=== PATIENT | male | born 1970 | race Caucasian/White ===

== ENCOUNTER 2024-07-09 13:54 | Emergency (ER) | payer MEDICAID, SELFPAY ==
--- NOTE | ~2024-07-09 | XR_ITS ---
EXAMINATION: XR HAND/WRIST, RIGHT CLINICAL INFORMATION: Trauma. Pain. COMPARISON: None available. TECHNIQUE: PA, lateral, oblique, and scaphoid views of the right hand and wrist. FINDINGS: The bones and soft tissues are normal. No fracture. Alignment is anatomic. Joint spaces are maintained. No erosions or soft tissue calcifications. XR/XR hand wrist RT IMPRESSION: Normal radiographs of the hand and wrist. Electronically signed by: Prasad Escalante MD 07/09/2024 05:57 PM EDT
[2024-07-09 15:46] VITALS: BP 114/72; PULSE 60; RESP 16; TEMP 36.7; O2SAT 97; BMI 23.0
--- NOTE | 2024-07-09 15:55 | ED_ITS ---
HPI - Extremity Problem General Chief complaint: Extremity Injury, Upper Stated complaint: work inj- r hand Time Seen by Provider: 07/09/24 16:03 Source: patient, RN notes reviewed and old records reviewed Mode of arrival: ambulatory History of Present Illness ED Provider: Rachelle Child PA-C HPI Narrative: 54-year-old male with no significant past medical history presenting to the ED complaining of crush injury to right hand s/p hand being crushed between tractor-trailer motor & dumpster yesterday while at work. Reports increasing pain and swelling to right hand with limited ROM secondary to pain. Reports in termittent tingling. Denies injury to other area Related Data Previous Rx's ?Medication ?Instructions ?Recorded hydrocodone 5 mg-acetaminophen 325 1 tab PO Q8H PRN pain, severe 3 07/09/24 mg tablet days #9 tabs Allergies Allergy/AdvReac Type Severity Reaction Status Date / Time No Known Allergies Allergy Verified 07/09/24 15:51 Review of Systems Review of Systems: Yes all other systems are reviewed and are negative Constitutional: Constitutional: Reports as per HPI [facility] Past Medical History Attestation statement: The following information was validated with the patient. Source: old records reviewed Social History Social History Advance Directives: No Advance Directives Information Provided: No Physical Exam Vital Signs: Vital Signs: Last Vital Signs Temp 98.1 F 07/09/24 19:05 Pulse 56 07/09/24 19:05 Resp 16 07/09/24 19:05 BP 100/59 L 07/09/24 19:05 Pulse Ox 98 07/09/24 19:05 O2 Del Method Room Air 07/09/24 19:05 BMI result Body Mass Index 23.0 Const: General: cooperative, healthy appearing and no acute distress Orientation/consciousness: patient oriented x3 Limitations: no limitations HEENT: Head: Yes normal to inspection and Yes atraumatic Ears: hearing grossly normal bilaterally General nose exam: Normal external nose present Face and sinus: Yes normal facial exam Eyes: General: appearance normal, both eyes and all related structures EOM: EOMs intact bilaterally Neck: Neck: Yes normal visual inspection and Yes no meningeal signs Resp: Effort & Inspection: normal respiratory effort and no respiratory distress Cardio: Rate: regular rate Skin: Rashes: no rashes Wounds: no wounds Neuro: General: patient oriented x3, tone normal and no meningeal signs Cranial nerves: Yes CN's II-XII intact bilaterally Gait exam (Neuro): Normal gait present Extrem: Other: Noted swelling to right hand greatest to 4th and 5th metacarpals with diffuse tenderness. Limited ROM secondary to pain. Neurovascularly intact. No wrist or snuffbox tenderness. Course Course Course Narrative: RME: done by ALDEN Hurt. 54-year-old male presents to ED for right hand injury that occurred at work yesterday. Patient states right hand was crushed between a tractor-trailer motor and thumbs the wall. Patient came to the ED to be evaluated due to worsening pain and slight swelling. Positive for right 5th 4th metacarpal tenderness and slight swelling on palpation. Negative ecchymosis. X-ray ordered. XR hand wrist RT IMPRESSION: Normal radiographs of the hand and wrist. ADDENDUM #1 There is a nondisplaced transverse fracture of the distal shaft of the fifth metacarpal. > Ulnar gutter splint applied with sling. Is to follow-up with hand specialist/orthopedics. Results discussed with patient including worrisome signs and symptoms and strict return precautions, and when to return to the emergency department. They verbalized understanding and feel safe for discharge at this time. Medications Administered Discontinued Medications Generic Name Dose Route Start Last Admin Trade Name Freq PRN Reason Stop Dose Admin Oxycodone HCl 5 mg 07/09/24 16:39 07/09/24 16:46 Oxycodone Hcl Immed Release 5 Mg Tablet PO 07/09/24 16:40 5 mg ONCE ONE Administration Medical Decision Making Medical Decision Making MDM Narrative: 54-year-old male with no significant past medical history presenting to the ED complaining of crush injury to right hand s/p hand being crushed between tractor-trailer motor & dumpster yesterday while at work. On exam vital signs stable, NAD, nontoxic appearing, physical exam as noted above. Concern for fracture/crush injury. No open wounds. No snuffbox tenderness Plan: X-ray, pain control Please refer to course for remaining clinical decision making, interpretation of labs/imaging results, and discussions with consultants and/or family members. Differential Diagnosis Differential Diagnoses: The differential diagnosis associated with the presentation includes As above Independent Interpretation I performed an independent interpretation of an: Plain X-Ray (Fifth metacarpal fracture appreciated on my interpretation) Radiology Impression Discussion of test interpretation with radiology: I have reviewed the radiologist's reading. External Record Review External record reviewed: Inpatient record, Office record, Outpatient record, Prior outpatient labs, Prior outpatient radiology, Primary care record and Outside ED record Tests considered The following testing was considered but not selected: As above Prescription Management I considered prescription management with: Pain Medication Social Determinants Patient?s care significantly limited by Social Determinants of Health including: Low income, Problems related to primary support group, Problems related to employment and Other Social Determinant of Health Procedures Orthopedic Splinting/Casting Injury #1: Side: right Upper Extremity Injury Location: finger Upper Extremity Immobilizer: ulnar gutter Discharge Plan Discharge Clinical Impression: Closed fracture of fifth metacarpal bone Patient Disposition: Home, Self-Care Instructions: Hand Fracture (ED) Additional Instructions: You have a fracture of your 5th metacarpal. It is nondisplaced KEEP SPLINT ON, DRY, CLEAN YOU NEED TO FOLLOW-UP WITH ORTHOPEDIC HAND SPECIALIST. CALL TOMORROW TO MAKE AN APPOINTMENT Wear sling as needed for elevation and comfort. Ice and elevate. Sinking Spring as an opiate pain medication, take only when pain is severe for the next 3 days. You should also Take ibuprofen and Tylenol for pain/swelling Do not drive or operate machinery while taking opiate pain medications. IF FINGERS BECOME NUMB, INCREASINGLY SWOLLEN, RED, DISCOLORED, PAIN IS UNBEARABLE REMOVE SPLINT AND RETURN TO THE ED IMMEDIATELY Patient was given opiate pain medication in the emergency department. Please do not drive the rest of the day. Prescriptions: New hydrocodone-acetaminophen 5-325 mg tablet 1 tab PO Q8H PRN (Reason: pain, severe) 3 Days Qty: 9 0RF Rx Instructions: Partial Fill upon patient request. Referrals: [facility] [Outside] Chari Parks MD [Physician] - 1 week Stand Alone Forms: Work/School Release Interventions: ED Discharge Assessment Last Done: 07/09/24 19:05 Discharge Date/Time: 07/09/24 19:06 Print Language: Arabic
[2024-07-09] MEDS: oxyCODONE HCl Immed Release 5 MG TABLET PO (16:46)
[2024-07-09 18:59] VITALS: BP 100/59; PULSE 56; RESP 16; TEMP 36.7; O2SAT 98
[2024-07-09 19:05] VITALS: BP 100/59; PULSE 56; RESP 16; TEMP 36.7; O2SAT 98
== END 2024-07-09 19:06 | disposition home or self-care (01) ==
PROVIDERS: Emergency Provider Emergency Medicine Emergency Medical Services
DX: S62.326A Displaced fracture of shaft of fifth metacarpal bone, right hand, initial encounter for closed fracture (principal); W23.0XXA Caught, crushed, jammed, or pinched between moving objects, initial encounter; Y93.89 Activity, other specified; Y92.89 Other specified places as the place of occurrence of the external cause; Y99.0 Civilian activity done for income or pay
CPT/HCPCS: 73110; 73130; 99283

== ENCOUNTER 2024-07-15 09:09 | Outpatient (REF) | payer MEDICAID, SELFPAY | END 2024-07-15 09:10 | disposition home or self-care (01) | LOC: HO.HOSX 09:09 | DX: M79.641 Pain in right hand (principal); S62.336A Displaced fracture of neck of fifth metacarpal bone, right hand, initial encounter for closed fracture | CPT/HCPCS: 26600; 73130; 99202 ==

== ENCOUNTER 2024-07-15 09:31 | Outpatient (AMB) | payer OTHER, MEDICAID, SELFPAY ==
--- NOTE | 2024-07-15 09:44 | MHC.OFFVIS ---
Vital Signs 07/15/24 09:45 Height 5 ft 11 in Weight 165 lb BMI 23.0 Intake Visit Reasons: FC- RT Closed fracture of fifth metacarpal bone Intake Note: Cain is a 54 year old right hand dominant male who presents today as a new patient for a fracture care visit. 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 He went to go and push the motor away when his hand was crushed between the motor and a dumpster. He was seen at the [facility] ED the day after the injury, where he was placed in an ulnar gutter splint. Patient reports that he is still having some mild pain and discomfort. He has somel numbness at the time of the splint application but has since improved. Allergies No Known Allergies Allergy (Verified 07/15/24 09:50) HPI HPI FC- RT Closed fracture of fifth metacarpal bone: Details: Patient is a 54-year-old male who presents for evaluation of right 5th metacarpal neck fracture, date of injury 07/08/2024. The patient reports that on that date, he was unloading a truck, and his hand got caught between a motor he was attempting to lift and a dumpster. The patient reports that he immediately began to experience significant discomfort in his right hand, and was evaluated in the emergency department the next day, where x-rays were taken revealing a nondisplaced fracture of the 5th metacarpal neck of the right hand. The patient states that he was placed in a splint, but he did remove the splint yesterday, as he found it tremendously uncomfortable. Today, the patient reports that he is still experiencing significant discomfort in the right hand, although it has improved since date of injury. The patient's largest concern is the significant ecchymosis and swelling both still present on both the dorsal and volar aspects of the right hand. Patient denies any numbness or tingling in the right hand. No other acute complaints or concerns at this time. 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 Neuro: Normal sensation of the tips of all digits of the [] hand at this time Vascular: Cap refill brisk Pain: Patient reports significant tenderness to gentle palpation about the 5th metacarpal neck and distal shaft shaft of the right hand Patient also reports some discomfort in this area when attempting to make a closed fist Minimal tenderness to palpation of the 4th metacarpal No tenderness to palpation of the 3rd, 2nd, 1st metacarpals of the right hand No snuffbox tenderness ROM: Patient is able to make a closed fist with the 1st through 4th digits of the right hand and extend them fully without much difficulty Skin: No lacerations or abrasions. General: There is noted to be significant edema over the 5th metacarpal of the right hand There is also noted to be palmar ecchymosis of the right hand No erythema, or evidence of infection. Psych: Appears grossly normal Affect normal Attitude cooperative Office Procedures AMB Fracture Care Details: Right 5th metacarpal neck fracture Fracture Billing Code: Fracture Billing Code Casting/Splints 96712-Yxrhmxj Splint Application Procedure code (CPT) selection complete Results Reviewed Results Reviewed: X-rays obtained in the office today and independently reviewed by me, Jeremy Kessler PA-C, demonstrate nondisplaced fracture of the 5th metacarpal neck of the right hand, unchanged from x-rays obtained in the emergency department. Assessment & Plan Assessment & Plan (1) Fracture of neck of fifth metacarpal bone of right hand: Code(s): S62.336A - Displaced fracture of neck of fifth metacarpal bone, right hand, initial encounter for closed fracture Category: Medical Plan 1. Right 5th metacarpal neck fracture Date of injury 07/08/2024 Patient is educated about this injury and the treatment options available At this time, patient is informed that he will not require surgery for treatment, as his fracture is nondisplaced and interdigitated well Patient understands this is amenable to this plan However, patient was informed that due to the significant swelling he continues to experience in his right hand, I can not place him into a cast at this time, and he will instead need to be placed into a splint for another week Patient will follow-up next week with repeat x-rays for reassessment and anticipation of placement into a cast, sooner with any acute concerns Orders: Orders XR hand RT min 3V Today M79.641 - Pain in right hand Coding Level of Care Code New Pt Level 3 (02505) Diagnoses Fracture of neck of fifth metacarpal bone of right hand S62.336A CPT Codes Fracture Care - Fracture Billing Code: Fracture Billing Code ([id number]) Splint - CPT: 31347-Ajgbnwe Splint Application ([id number])
[2024-07-15 09:45] VITALS: BMI 23.0
== END 2024-07-15 10:46 | disposition home or self-care (01) ==
LOC: HO.HOS 09:31
DX: S62.366A Nondisplaced fracture of neck of fifth metacarpal bone, right hand, initial encounter for closed fracture (principal); Z04.2 Encounter for examination and observation following work accident
CPT/HCPCS: 26600; 99203

== ENCOUNTER 2024-07-21 09:27 | Outpatient (AMB) | payer OTHER, SELFPAY ==
--- NOTE | 2024-07-21 09:41 | A.OFFVIS_ITS ---
Vital Signs 07/21/24 09:44 Height 5 ft 11 in Weight 165 lb BMI 23.0 Handedness Right Intake Visit Reasons: OV- RT Closed fracture of fifth metacarpal bone Intake Note: Cain is a 54 year old right hand dominant male who presents today for a follow up visit for his right hand fracture of neck of fifth metacarpal bone s/p crush injury DOI: 07/08/2024. Patient reports his right hand feels okay, his concern is his wrist. He reports pain and stiffness at his wrist. He takes ibuprofen as needed for pain but says this gives him mild relief. He also ices and says this relief some pain inside the right hand. Allergies No Known Allergies Allergy (Verified 07/21/24 09:44) HPI HPI OV- RT Closed fracture of fifth metacarpal bone: Details: Patient is a 54-year-old male who presents for one-week follow-up of closed fracture of right 5th metacarpal neck, date of injury 07/08/2024 today, the patient reports that the swelling in his hand has gone down significantly since evaluation last week, and feels that this led to the splint loosening. Patient states that he did keep the splint clean dry and intact. Patient does report he is still experiencing some mild discomfort in the area fracture, but this is also improved since previous evaluation. Patient denies any numbness or tingling in the right hand. No other acute complaints or concerns at this time. 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 Neuro: Normal sensation of the tips of all digits of the right hand at this time Vascular: Cap refill brisk Pain: Patient reports mild tenderness to gentle palpation about the 5th metacarpal neck and distal shaft shaft of the right hand Minimal tenderness to palpation of the 4th metacarpal No tenderness to palpation of the 3rd, 2nd, 1st metacarpals of the right hand No snuffbox tenderness ROM: Patient is able to make a closed fist with the 1st through 4th digits of the right hand and extend them fully without much difficulty Skin: No lacerations or abrasions. General: There is noted to be significantly improved edema over the 5th metacarpal of the right hand Palmar ecchymosis has resolved No erythema, or evidence of infection. Psych: Appears grossly normal Affect normal Attitude cooperative Office Procedures Casting/Splints Details: Ulnar gutter cast applied 98214-Shnj/Wrist Cast Application Procedure code (CPT) selection complete Results Reviewed Results Reviewed: X-rays obtained in the office today and independently reviewed by me, Jeremy Kessler PA-C, demonstrate nondisplaced fracture of the 5th metacarpal neck of the right hand. Assessment & Plan Assessment & Plan (1) Fracture of neck of fifth metacarpal bone of right hand: Code(s): S62.336A - Displaced fracture of neck of fifth metacarpal bone, right hand, initial encounter for closed fracture Category: Medical Plan 1. Right 5th metacarpal neck fracture Date of injury 07/08/2024 Patient is educated about this injury and the treatment options available At this time, patient is informed that he will not require surgery for treatmen t, as his fracture is nondisplaced and interdigitated well Patient understands this is amenable to this plan Patient was placed into a short-arm ulnar gutter cast at this time Patient is educated on proper cast care and precautions Patient is also educated that due to his cigarette smoking, there is a chance he will experience delay healing with this fracture Patient states understanding of this Patient will follow-up in 2-3 weeks with repeat x-rays and cast off for reassessment, sooner with any acute concerns Orders: Orders XR hand RT min 3V Today M79.641 - Pain in right hand Coding Level of Care Code Global (93289) Diagnoses Fracture of neck of fifth metacarpal bone of right hand S62.336A CPT Codes Casting - CPT: 83550-Hmol/Wrist Cast Application ([id number])
[2024-07-21 09:44] VITALS: BMI 23.0
== END 2024-07-21 10:42 | disposition home or self-care (01) ==
DX: S62.336A Displaced fracture of neck of fifth metacarpal bone, right hand, initial encounter for closed fracture (principal); Z04.2 Encounter for examination and observation following work accident
CPT/HCPCS: 29085; 99024

== ENCOUNTER 2024-07-21 10:33 | Outpatient (REF) | payer OTHER, SELFPAY | END 2024-07-21 10:34 | disposition home or self-care (01) | LOC: HO.HOSX 10:33 | DX: M79.641 Pain in right hand (principal); S62.336A Displaced fracture of neck of fifth metacarpal bone, right hand, initial encounter for closed fracture | CPT/HCPCS: 29085; 73130; 99212 ==

== ENCOUNTER 2024-07-28 12:47 | Outpatient (AMB) | payer OTHER, SELFPAY ==
--- NOTE | 2024-07-28 12:49 | MHC.OFFVIS ---
Intake Visit Reasons: OV- cast change, RT Closed fC of 5th metacarpal Intake Note: Cain is a 54 year old male who presents today for a cast change. He mentions that his cast feels very loose. Cast was removed. Allergies No Known Allergies Allergy (Verified 07/28/24 12:58) HPI HPI OV- cast change, RT Closed fC of 5th metacarpal: Details: 54-year-old right hand dominant male who presents in the office today for a follow-up of right closed fracture of the 5th metacarpal status post crush injury which occurred on 07/08/24. The patient was seen by Jeremy Kessler PA-C on 07/21/24 when he was educated about his injury and treatment options and was placed into a short-arm ulnar gutter cast at that time. He was also educated on proper cast care and precautions. While in the office today, the patient presents today for a cast change. He reports that he feels his cast is very loose. 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 No ecchymosis. Mild edema over the 5th and 4th metacarpal. Able to flex and extent all the digits with pain. Sensation is intact. Capillary refill is brisk. Office Procedures Casting/Splints 81977-Cwsu/Wrist Cast Application Procedure code (CPT) selection complete Assessment & Plan Assessment & Plan (1) Fracture of neck of fifth metacarpal bone of right hand: Code(s): S62.336A - Displaced fracture of neck of fifth metacarpal bone, right hand, initial encounter for closed fracture Category: Medical Plan Mr. Brantley is a 54-year-old right hand dominant male who presents in the office today for a follow-up of right closed fracture of the 5th metacarpal status post crush injury which occurred on 07/08/24. The patient was seen by Jeremy Kessler PA-C, on 07/21/24 when he was educated about his injury and treatment options and was placed into a short-arm ulnar gutter cast at that time. He was also educated on proper cast care and precautions. While in the office today, the patient presents today for a cast change. He reports that he feels his cast is very loose. He was placed back into an ulnar gutter cast. Follow up at his normally scheduled follow up, or sooner if needed. Patient Instructions: Scribed by Marie Gotti, medical assistant supervisor, for Jessi Morel PA-C on 07/28/2024 at 01:04 pm EST. Coding Level of Care Code Global (88615) Diagnoses Fracture of neck of fifth metacarpal bone of right hand S62.336A CPT Codes Casting - CPT: 50595-Qhlk/Wrist Cast Application ([id number])
== END 2024-07-28 13:51 | disposition home or self-care (01) ==
LOC: HO.HOS 12:47
PROVIDERS: Visit Provider Physician Assistant
DX: S62.336A Displaced fracture of neck of fifth metacarpal bone, right hand, initial encounter for closed fracture (principal); S67.21XA Crushing injury of right hand, initial encounter; Z04.2 Encounter for examination and observation following work accident
CPT/HCPCS: 29075; 99024

== ENCOUNTER → 2024-07-28 12:47 | Outpatient (BNVA) | payer OTHER, SELFPAY | PROVIDERS: Visit Provider Physician Assistant | DX: S62.326A Displaced fracture of shaft of fifth metacarpal bone, right hand, initial encounter for closed fracture (principal); W23.0XXA Caught, crushed, jammed, or pinched between moving objects, initial encounter; Y93.89 Activity, other specified; Y92.69 Other specified industrial and construction area as the place of occurrence of the external cause; Y99.0 Civilian activity done for income or pay; Z04.2 Encounter for examination and observation following work accident | CPT/HCPCS: 29075; 99212 ==

== ENCOUNTER 2024-08-12 08:18 | Outpatient (REF) | payer OTHER, SELFPAY | END 2024-08-12 08:19 | disposition home or self-care (01) | LOC: HO.HOSX 08:18 | DX: M79.641 Pain in right hand (principal); S62.336A Displaced fracture of neck of fifth metacarpal bone, right hand, initial encounter for closed fracture | CPT/HCPCS: 73130; 99212 ==

== ENCOUNTER 2024-08-12 09:44 | Outpatient (AMB) | payer OTHER, SELFPAY ==
--- NOTE | 2024-08-12 09:52 | MHC.OFFVIS ---
Vital Signs 08/12/24 10:05 Height 5 ft 11 in Weight 165 lb BMI 23.0 Handedness Right Intake Visit Reasons: OV: RT FX of 5th metacarpal DOI: 07/08/24-w/xray Intake Note: Cain is a 54 year old right hand dominant male who presents today for a follow up visit for his right hand fracture of neck of fifth metacarpal bone s/p crush injury DOI: 07/08/2024. Short-arm ulnar gutter cast removed and xrays updated. Patient reports his right hand feels stiff and has pain. He expresses the pain is in the 3rd metacarpal area (dorsal aspect) of the right hand. 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 Today, the patient reports that the pain he was experiencing at the fracture site has completely resolved, but he is experiencing significant discomfort and associated stiffness in the R hand, worst in the middle finger. Denies any numbness or tingling in the right hand. No other acute complaints or concerns at this time. 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 Neuro: Normal sensation of the tips of all digits of the right hand at this time Vascular: Cap refill brisk Pain: Patient reports no tenderness to gentle palpation about the 5th metacarpal neck and distal shaft shaft of the right hand No tenderness to palpation of the 4th metacarpal No tenderness to palpation of the 3rd, 2nd, 1st metacarpals of the right hand No snuffbox tenderness ROM: Patient was unable to make a closed fist at this time due to stiffness and discomfort Patient is able to extend all digits right hand fully and without difficulty Skin: No lacerations or abrasions. General: There is noted to be significantly improved edema over the 5th metacarpal of the right hand Palmar ecchymosis has resolved No erythema, or evidence of infection. Psych: Appears grossly normal Affect normal Attitude cooperative Results Reviewed Results Reviewed: X-rays obtained in the office today and independently reviewed by me, Jeremy Kessler PA-C, demonstrate minimally displaced fracture of the 5th metacarpal neck with evidence of interval bone healing. Assessment & Plan Assessment & Plan (1) Fracture of neck of fifth metacarpal bone of right hand: Code(s): S62.336A - Displaced fracture of neck of fifth metacarpal bone, right hand, initial encounter for closed fracture Category: Medical Plan 1. Right 5th metacarpal neck fracture Date of injury 07/08/2024 Patient is educated about this injury and the treatment options available At this time, patient is informed that he will not require surgery for treatment, as his fracture is nondisplaced and interdigitated well Patient understands this is amenable to this plan At this time, patient is informed that he no longer needs to be in a cast, and then he will be provided with a Velcro wrist splint to be worn with daytime activities and should jaylin tape his fingers together at all times, aside from bathing Patient is also educated that he should be adherent to a strict 5 lb weight restriction in his right hand while at work for the next 2 weeks, increasing to 10 lb at that point until follow-up Patient states understanding of this Patient will follow-up in 4 weeks with repeat x-rays for reassessment, sooner with any acute concerns Orders: Orders XR hand RT min 3V Today M79.641 - Pain in right hand OT Evaluation and Treatment Today S62.336A - Displaced fracture of neck of fifth metacarpal bone, right hand, initial encounter for closed fracture Coding Level of Care Code Global (27035) Diagnoses Fracture of neck of fifth metacarpal bone of right hand S62.336A
[2024-08-12 10:05] VITALS: BMI 23.0
== END 2024-08-12 10:41 | disposition home or self-care (01) ==
DX: S62.336A Displaced fracture of neck of fifth metacarpal bone, right hand, initial encounter for closed fracture (principal)
CPT/HCPCS: 99024

== ENCOUNTER 2024-08-27 11:03 | Outpatient (AMB) | payer OTHER, SELFPAY ==
--- NOTE | 2024-08-27 11:13 | A.OFFVIS_ITS ---
Vital Signs 08/27/24 11:28 Height 5 ft 11 in Weight 165 lb BMI 23.0 Handedness Right Intake Visit Reasons: OV: RT FX of 5th metacarpal DOI: 07/08/24-w/xray Intake Note: Cain is a 54 year old right hand dominant male who presents today for a follow up visit for his right hand fracture of neck of fifth metacarpal bone s/p crush injury DOI: 07/08/2024. Patient has concern of nerve damage in right hand and wrist from his cast. Reports pulling up his pants or pulling up socks he feels sharp shooting pain at the base of right thumb. Reports he feels sharp pain on the dorsal and volar aspect of the right wrist that radiates half way into his forearm. He states he started OT and has only done 2 visits so far. Allergies No Known Allergies Allergy (Verified 08/27/24 11:27) HPI HPI OV: RT FX of 5th metacarpal DOI: 07/08/24-w/xray: Details: Patient is a 54-year-old male who presents for follow-up evaluation of right 5th metacarpal fracture, date of injury 07/08/2024. Today, the patient reports that the fracture site is feeling very well, he experiences no pain or discomfort at baseline in this area. The patient does report however that he is experiencing significant pain in his wrist, in the dorsal aspect of his 3rd metacarpal, and at the base of his thumb radiating into his forearm, ongoing since removal from his cast. Patient states concern that the cast cause some injury to the nerves of hand that has caused this pain. Patient denies any numbness or tingling in the right hand. No other acute complaints or concerns at this time. 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 Neuro: Normal sensation of the tips of all digits of the right hand at this time Vascular: Cap refill brisk Pain: Patient reports no tenderness to gentle palpation about the 5th metacarpal neck and distal shaft shaft of the right hand No tenderness to palpation of the 4th metacarpal No tenderness to palpation of the 3rd, 2nd, 1st metacarpals of the right hand No snuffbox tenderness ROM: Patient was able to make a closed fist Patient is able to extend all digits right hand fully and without difficulty Skin: No lacerations or abrasions. General: There is noted to be significantly improved edema over the 5th metacarpal of the right hand Palmar ecchymosis has resolved No erythema, or evidence of infection. Psych: Appears grossly normal Affect normal Attitude cooperative Results Reviewed Results Reviewed: X-rays obtained in the office today and independently reviewed by me, Jeremy Kessler PA-C, demonstrate minimally displaced fracture of the 5th metacarpal neck with evidence of interval bone healing. Assessment & Plan Assessment & Plan (1) Fracture of neck of fifth metacarpal bone of right hand: Code(s): S62.336A - Displaced fracture of neck of fifth metacarpal bone, right hand, initial encounter for closed fracture Category: Medical Plan 1. Right 5th metacarpal neck fracture Date of injury 07/08/2024 Patient is educated about this injury and the treatment options available At this time, patient is informed that he no longer needs to wear the Velcro wrist splint, and he should only be jaylin taping his fingers with daytime activities Patient is also educated that he should be adherent to a strict 10-15 lb weight restriction for the next 2-3 weeks, and gradually working back up to normal lifting at that point Patient states understanding of this 2. De Quervain tenosynovitis, right Patient is educated about this condition Patient is educated about the treatment options available Patient would like to proceed with continuation of occupational therapy at this time, and states he would not like a steroid injection today Patient is educated that if in 4-6 weeks after this visit he is still ex periencing pain, he can call our office if he would like for reassessment and discussion injection Orders: Orders XR hand RT min 3V Today M79.641 - Pain in right hand Coding Level of Care Code Est Pt Level 3 (71818) Diagnoses Fracture of neck of fifth metacarpal bone of right hand T79.542N
[2024-08-27 11:28] VITALS: BMI 23.0
== END 2024-08-27 11:51 | disposition home or self-care (01) ==
DX: S62.336A Displaced fracture of neck of fifth metacarpal bone, right hand, initial encounter for closed fracture (principal)
CPT/HCPCS: 99024

== ENCOUNTER 2024-08-27 11:03 | Outpatient (REF) | payer OTHER, SELFPAY | END 2024-08-27 11:04 | disposition home or self-care (01) | LOC: HO.HOSX 11:03 | DX: M79.641 Pain in right hand (principal); S62.336A Displaced fracture of neck of fifth metacarpal bone, right hand, initial encounter for closed fracture | CPT/HCPCS: 73130; 99212 ==

== ENCOUNTER 2024-09-05 08:47 | Outpatient (RCR) | payer OTHER, SELFPAY ==
--- NOTE | 2024-08-21 15:29 | MHC.OT.EP ---
[address] [phone] Occupational Therapy Plan of Care Patient Name: Cain Brantley Date of Evaluation: 08/21/24 Diagnosis: hand stiffness ; 5th MC neck fracture R hand Pain Location: Pt reported pain over dorsal side of D3 espec. at MP level. Pt reports intermittent stabbing pain from volar wrist to elbow w/ certain movements but was unable to quantify Pain Score: 7 Pain Scale Used: Numeric (0 - 10) Aggravating Factors: HYPERSENSITIVE ; MOVEMENT OR TOUCH Alleviating Factors: None Assessment: Pt is a R hand dominant male who injured his R hand while at work in a crush injury. Pt went to the ED the next day when swelling and pain increased. He was diagnosed w/ a 5th digit metacarpal neck fracture and was placed in a temporary splint until he was able to follow up w/ ortho. Pt had a follow up w/ ortho and was placed in a cast. He presents today in a pre-fabricated orthoses and SF/RF jaylin taping as prescribed by Jeremy RUANO. He reports hypersensitivity w/ ROM and/or touch of his hand volar and dorsal sides. He has significant edema and has been reportedly guarding his hand. He has been referred to skilled OT therapy to decrease edema/ pain and increase AROM, strength and functional use of his dominant hand. 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 Thank you once again for your referral.
== END 2024-09-11 09:09 | disposition home or self-care (01) ==
LOC: HO.OT 08:47
DX: S62.336A Displaced fracture of neck of fifth metacarpal bone, right hand, initial encounter for closed fracture (principal)
CPT/HCPCS: 97110; 97140; 97166; 97535

== ENCOUNTER 2025-07-28 06:31 | Emergency (ER) | payer OTHER, SELFPAY ==
--- NOTE | ~2025-07-28 | XR_ITS ---
CLINICAL HISTORY: painful 3 view right shoulder Comparison: None provided Findings: Bones intact. No dislocations. No significant loss of joint space or osteophytes. No erosions. No radiopaque foreign body. IMPRESSION: 1. No acute findings This document has been electronically signed by: Jeremy Barnard MD on 07/28/2025 07:18:41
[2025-07-28 06:34] VITALS: BP 123/72; PULSE 73; RESP 20; TEMP 36.7; O2SAT 98; BMI 23.1
--- NOTE | 2025-07-28 06:59 | ED_ITS ---
HPI - Extremity Problem General Chief complaint: Extremity Injury, Upper Stated complaint: right shoulder and arm pain Time Seen by Provider: 07/28/25 06:58 Source: patient Mode of arrival: ambulatory Limitations: no limitations History of Present Illness ED Provider: Sandra Santacruz PA-C HPI Narrative: Patient is a 55 year old assigned male at with no reported medical history presenting to the emergency department today with right shoulder pain. Patient states that over the last week has had intermittent right shoulder pain. 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 Patient states that he has more pain with certain right shoulder ranges of motion and allowing warm / hot shower water flowing over the area helps. Patient denies any other complaints at this time. Related Data Home Medications ?Medication ?Instructions ?Recorded ?Confirmed ibuprofen 200 mg tablet 400 mg PO Q8H PRN 07/21/24 Previous Rx's ?Medication ?Instructions ?Recorded cyclobenzaprine 5 mg tablet 5 mg PO TID PRN muscle spa sm 7 07/28/25 days #21 tabs naproxen 500 mg tablet 500 mg PO BID 7 days #14 tab s 07/28/25 Allergies Allergy/AdvReac Type Severity Reaction Status Date / Time No Known Allergies Allergy Verified 07/28/25 06:36 Review of Systems Constitutional: Constitutional: Reports as per HPI Eyes: Eyes: Reports as per HPI ENT: Reports as per HPI Cardiovascular: Cardiovascular: Reports as per HPI Respiratory: Respiratory: Reports as per HPI Gastrointestinal: Gastrointestinal: Reports as per HPI Genitourinary: Genitourinary: Reports as per HPI Musculoskeletal: Musculoskeletal: Reports as per HPI Integumentary/Breasts: Skin/Breast: Reports as per HPI Neurologic: Reports as per HPI Psychiatric: Psychiatric: Reports as per HPI Endocrine: Endocrine: Reports as per HPI Hematologic/Lymphatic: Hematologic/Lymphatic: Reports as per HPI Allergic/Immunologic: Allergic/Immunologic: Reports as per HPI PMFSH Past Medical History Attestation statement: The following information was validated with the patient. 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 Exam Vital Signs: Vital Signs: Last Vital Signs Temp 98.0 F 07/28/25 06:34 Pulse 73 07/28/25 06:34 Resp 20 07/28/25 06:34 BP 123/72 07/28/25 06:34 Pulse Ox 98 07/28/25 06:34 O2 Del Method Room Air 07/28/25 06:34 BMI result Body Mass Index 23.1 Const: General: cooperative, no acute distress, alert and awake Nutritional Appearance: well nourished Orientation/consciousness: patient oriented x3 HEENT: Head: Yes normal to inspection and Yes atraumatic Ears: hearing grossly normal bilaterally and external ears normal General nose exam: Normal external nose present, no nasal discharge noted and no epistaxis Face and sinus: Yes normal facial exam, No abrasion and No laceration Mouth: Normal oral and palatal mucosa present, no drooling and no muffled voice Eyes: General: appearance normal, both eyes and all related structures Periorbital: periorbital findings normal Eyelids: Yes eyelids normal C onjunctivae: conjunctivae normal Pupils: Equal, round and reactive pupils present EOM: EOMs intact bilaterally Neck: Neck: Yes normal visual inspection and Yes full ROM Resp: Effort & Inspection: normal respiratory effort and able to speak in complete sentences Neuro: General: patient oriented x3, moves all extremities and CN's II-XI intact bilaterally Cranial nerves: Yes Equal, round and reactive pupils present Cognition (Neuro): normal cognition Extrem: Other: small amount of swelling present where the right shoulder meets the right pectoris point tenderness along the subscapularis insertion site pain with ROM of the right shoulder General: Yes capillary refill normal Psych: Appearance: grossly normal Mental Status: mental status grossly normal Affect: normal affect Attitude: cooperative Thought process: Normal thought process present Thought content: Normal thought content present Insight: Good insight present (Psych) Medical Decision Making Medical Decision Making MDM Narrative: Patient is a 55 year old assigned male at with no reported medical history presenting to the emergency department today with right shoulder pain. Patient's physical exam was as noted in the physical exam portion of this note and consistent with rotator cuff dysfunction vs. tendonitis. Patient's right shoulder x-ray showed no acute process. I explained my physical exam findings as well as all test results to the patient. I answered all questions asked by the patient. Patient was given IM Solu-medrol and IM toradol while in the department. I stressed the importance of the patient taking his medication as directed (either prescribed or as the over the counter packaging recommends). I stressed the importance of the patient following up with his primary care provider and the orthopedic team. I stressed the importance of the patient returning to the emergency department immediately if his symptoms were to worsen or if he were to develop any dizziness, shortness of breath, difficulty breathing, chest pain, blurry vision, loss of vision, nausea, vomiting, abdominal pain, fever, chills, back pain, or any other complaints. Patient verbalized agreement and understanding with this treatment plan and discharge. Differential Diagnosis Differential Diagnoses: The differential diagnosis associated with the presentation includes Right shoulder injury Right rotator cuff injury Right rotator cuff dysfunction Admission/Observation Consideration of admission/observation: Escalation of care including admission/observation considered Patient would have been admitted to the hospital had his work up had any findings where hospital admission was appropriate and his clinical presentation warranted hospital admission. Independent Interpretation I performed an independent interpretation of an: Plain X-Ray Interpretation: My interpretation is in agreement with the radiologist's impression of this imaging study. Reason for Exam: painful CLINICAL HISTORY: painful 3 view right shoulder Comparison: None provided Findings: Bones intact. No dislocations. No significant loss of joint space or osteophytes. No erosions. No radiopaque foreign body. IMPRESSION: 1. No acute findings This document has been electronically signed by: Jeremy Barnard MD on 07/28/2025 07:18:41 Dictated By: Jeremy Barnard MD Signed By: Electronically signed by Jeremy Barnard MD 07/28/25 0719 Radiology Impression Discussion of test interpretation with radiology: I have reviewed the radiologist's reading. Prescription Management I considered prescription management with: Pain Medication (patient prescribed pain medication (naproxen + flexeril)) Discharge Plan Discharge Clinical Impression: Rotator cuff dysfunction Qualifiers: Laterality: right Qualified Code(s): M67.911 - Unspecified disorder of synovium and tendon, right shoulder Patient Disposition: Home, Self-Care Instructions: Rotator Cuff Injury (ED), Rotator Cuff Tendinitis (ED), Rotator Cuff Injury Exercises (DC) Additional Instructions: Your clinical presentation today is most consistent with a right rotator cuff injury / dysfunction. Your x-ray did not show any jeffrey abnormality. You were given an injection of systemic steroid (solu-medrol) and an anti- inflammatory (toradol) while in the department today. You were prescribed an anti-inflammatory (Naproxen) and a muscle relaxer (cyclobenzaprine). Please take a dose of the muscle relaxer when you get home but wait to start the Naproxen until tomorrow (07/29/2025). Follow up with the orthopedic team and remember - do NOT sling the shoulder (you will freeze it and that is very difficult to recover from). You may apply heat to the area but please make sure to have a layer between your skin and whatever heat source you use. IF you are prescribed home medications and/or you are taking over the counter medications at home - it is very important you continue to do so as prescribed / directed unless told otherwise. Follow up with a primary care provider. Return to the emergency department immediately if your symptoms worsen or if you develop any numbness, tingling, dizziness, shortness of breath, difficulty breathing, chest pain, blurry vision, loss of vision, nausea, vomiting, abdominal pain, fever, chills, back pain, or any other complaints. If you do not have a primary care provider - call any of the below numbers to establish and follow up with a primary care provider. [facility] Primary Care ([place]) [phone] [place] [address], [address] [facility] Primary Care ([address] [place]) [phone] [address], [address] [place], [address] [facility] Primary Care ([address] [place]) [phone] [address], [address] [place], [address] [facility] Primary Care ([place]) [phone] [place] [address], [address] [place], [address] [facility] Family Medicine [phone] [place] [address], [address] Please see the information below about our Patient Portal. If you are not yet enrolled in the [facility] Patient Portal, you will receive an enrollment email invitation following your visit to any [facility] setting. You may also self-enroll in the Patient Portal by visiting our website: [email or web address] The following information is required to access the Patient Portal: - Your [facility] Medical Record Number - Your personal home email address (must match what is in your electronic medical record, Registration staff can assist with this) - Name - Date of Capabilities of the Patient Portal: - Message some providers - View upcoming appointments - Access your health summary, medical history, and visit history - View current conditions and allergies - View procedure and lab results - View your medications, including guidelines, side effects, and precautions - Complete pre-appointment questionnaires requested by your provider - Ready summary reports of your office visits and procedures To access the Patient Portal Mobile Johnny, follow these directions: - Search AskNshare in the Johnny Store or eMeter Store - Download the Johnny - Search for [facility] - Enter your login/password Prescriptions: New cyclobenzaprine 5 mg tablet 5 mg PO TID PRN (Reason: muscle spasm) 7 Days Qty: 21 0RF naproxen 500 mg tablet 500 mg PO BID 7 Days Qty: 14 0RF No Action ibuprofen 200 mg tablet 400 mg PO Q8H PRN Referrals: [facility] Orthopedic Surgeons [Provider Group] Referral Note: Call to establish and follow up with the orthopedic team for your right shoulder pain / rotator cuff dysfunction. Print Language: [place] Island[place]
[2025-07-28 07:51] VITALS: BP 123/72; PULSE 73; RESP 20; TEMP 36.7; O2SAT 98
== END 2025-07-28 07:52 | disposition home or self-care (01) ==
PROVIDERS: Emergency Provider Emergency Medicine
DX: M67.911 Unspecified disorder of synovium and tendon, right shoulder (principal)
CPT/HCPCS: 73030; 96372; 99283; 99284; J1885; J2919

== ENCOUNTER → 2025-07-28 06:45 | Outpatient (BNV) | payer OTHER, SELFPAY | PROVIDERS: Emergency Provider Emergency Medicine; Visit Provider Radiology Diagnostic Radiology | DX: M25.511 Pain in right shoulder (principal) | CPT/HCPCS: 73030 ==